=== PATIENT | female | born 1965 | race Caucasian/White ===

== ENCOUNTER 2020-04-15 13:35 | Outpatient (CLI) | payer OTHER, SELFPAY ==
--- NOTE | 2020-04-19 10:42 | ONC FU_ITS ---
Dr. Regan Patient Follow-Up Note Patient: Rita Sorenson Unit #: [id number]: 1965 Dicatated By: Farshad Regan M.D.Date of Visit:Apr 15, 2020 Onc Med Follow-up/Prog Note Chief Complaint: Rectal cancer. 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 She had an obstructing tumor at initial presentation. She was given neoadjuvant chemoradiation utilizing infusional 5-FU chemotherapy. She underwent low anterior resection with diverting colostomy in March of 2010. She had a complete pathologic response to the chemoradiation. I did attempt additional postoperative adjuvant chemotherapy, initially with modified FOLFOX and subsequently with Xeloda. She had significant toxicities with both chemotherapy regimens, and she received only 1 biweekly cycle of FOLFOX and 1 abbreviated cycle of Xeloda. She had no further chemotherapy. Her treatment was completed in June of 2010. She subsequently was able to undergo a reanastomosis of her bowel. She has since then followed on observation/expectant management. Her most recent surveillance colonoscopy was in November 2016. Surveillance CT scans of chest, abdomen, and pelvis on 03/29/2018 showed no evidence of metastatic disease. She has been in good health. She has had no other medical illnesses. Her other surgeries have been limited to section in 1986 and in 1991 and tubal ligation in 1992. She is a nonsmoker, and she does not drink alcohol. She is seen for a scheduled visit. She has been feeling good generally. She has good energy and activity tolerance. ECOG score 0. Her appetite is good. She has gained a little weight. She does not have fever. She does have some hot flashes and sweating. She has occasional allergy related sinus symptoms. She has no shortness of breath, cough, or chest pain. She has no GI complaints. Bladder function has been okay. She has had some ongoing problems with vaginal dryness since the chemoradiation. She has just occasional aching in her joints. She has no focal neurologic symptoms. Medications: Cholecalciferol 1 drop(s) (of 3000 Units) Liquid Oral daily, [facility] Fish Oil 1 Capsule (of 1000 mg) Oral daily, Omeprazole Capsule Delayed Release Oral PRN, Vitamin E Capsule Oral Allergies: Steri Strips Review of Systems: Constitutional - She has good energy, and she has normal activity. Appetite is good. She has gained some weight. She has hot flashes and sweating. No fever. ECOG score is 0, ENMT - She has occasional allergy related sinus symptoms. No mouth sores. No sore throat or difficulty swallowing, Hematologic/Lymphatic - She bruises easily, Respiratory - No shortness of breath. No cough. No pleuritic pain or hemoptysis, Cardiovascular - No angina pain. No palpitations, Gastrointestinal - No nausea or vomiting. No heartburn or acid reflux. No diarrhea or constipation. No blood in the stool or black stools, Genitourinary (F) - No dysuria or hematuria. No urinary frequency. No urgency or incontinence. She has had no menstruation since she started the chemoradiation. She is having some ongoing problems with vaginal dryness, Musculoskeletal - No joint or bone pain, Integumentary - No skin complications, Neurologic - No headache or dizziness. No numbness/paresthesias or other focal neurologic symptoms, Psychiatric - No anxiety or depression. No insomnia. Vital Signs: Performed on Apr 15, 2020 13:49 Height - 65.00 in Weight - 154.4 lbs (HIGH) BSA - 1.77 sq.m BMI - 25.69 Temperature - 98.6 F Pulse - 54 /min (LOW) Respiration - 18 /min BP - 129/65 mm(hg) O2 Sat - 99 % Pain - 0 Physical Examination: Constitutional - She looks good generally, Eyes - Sclerae nonicteric. Conjunctivae clear, ENMT - No lesions noted in the oral cavity, Hematologic/Lymphatic - No cervical, clavicular, or axillary adenopathy, Respiratory - Lungs are clear with good air movement bilaterally, Cardiovascular - Heart rhythm is regular. There is no murmur, gallop, or rub noted, Abdomen - Soft. Liver and spleen are not enlarged. There is no abdominal mass or ascites noted and there is no inguinal adenopathy, Extremities - No edema. Posterior tibial pulses are palpable bilaterally, Neurologic - No focal neurologic deficits noted. Lab/Imaging: Test performed on April 08, 2020 13:48 Glucose 92 mg/dL BUN 14 mg/dL Creatinine 0.79 mg/dL Cr Clearance (Est) 86.28 mL/min Sodium 143 mmol/L Potassium 4.1 mmol/L Chloride 105 mmol/L CO2 29 mmol/L Calcium 9.7 mg/dL Protein, Total 6.9 g/dL Albumin 4.8 g/dL Globulin 2.1 g/dL Bilirubin, Total 1.9 mg/dL Alkaline Phosphatase 56 IU/L AST (SGOT) 20 IU/L ALT (SGPT) 18 IU/L WBC 4.5 10^9/L RBC 4.21 10^12/L HGB 13.2 g/dL HCT 38.2 % MCV 90.7 fl MCH 31.4 pg MCHC 34.6 g/dL RDW 12.0 % Platelet Count 257 10^9/L MPV 9.1 fL Neutrophils (Gran) 3011 10^9/L Lymphocytes 1098 10^9/L Monocytes 221 10^9/L Eosinophils 131 10^9/L Basophils 41 10^9/L Manual Lymphocytes 24.4 % Manual Monocytes 4.9 % Manual Eosinophils 2.9 % Manual Basophils 0.9 % CEA 0.9 ng/mL Impression: 1. Patient with poorly differentiated adenocarcinoma of the rectum, clinical stage IIA (T3, N0, M0). 2. She had complete pathologic response to neoadjuvant chemoradiation, confirmed at low anterior resection in March 2010. 3. She received an abbreviated course of postoperative adjuvant chemotherapy, completed in June 2010. 4. She has had no other ongoing medical illnesses. She does have a mildly elevated total bilirubin level with normal liver enzymes, clinically consistent with Gilbert syndrome. She has remained on observation/expectant management following her adjuvant chemotherapy. Her most recent surveillance colonoscopy was in November 2016. Her surveillance CT scans the chest, abdomen, and pelvis in March 2018 showed no evidence of recurrent or metastatic disease. Overall, during follow-up she has been doing well clinically with no evidence of recurrence of the rectal cancer. Plan: She remains on observation/expectant management. I will arrange for referral to Dr. Dwyer for surveillance colonoscopy. I will see her again in one year. Signed By: Farshad Regan M.D. <<Signature on File>>
== END 2020-04-15 13:36 | disposition home or self-care (01) ==
LOC: ONCMED 13:39
PROVIDERS: PCP Family Medicine; Visit Provider Internal Medicine Medical Oncology
DX: Z08 Encounter for follow-up examination after completed treatment for malignant neoplasm (principal); Z85.048 Personal history of other malignant neoplasm of rectum, rectosigmoid junction, and anus; E80.4 Gilbert syndrome; Z92.21 Personal history of antineoplastic chemotherapy; Z92.3 Personal history of irradiation
CPT/HCPCS: G0463

== ENCOUNTER → 2020-05-04 14:40 | Outpatient (BNVA) | payer OTHER, SELFPAY | PROVIDERS: PCP Family Medicine; Visit Provider Family Medicine | DX: Z00.00 Encounter for general adult medical examination without abnormal findings (principal); E55.9 Vitamin D deficiency, unspecified | CPT/HCPCS: 80053; 80061; 82306; 84443; 85025 ==

== ENCOUNTER 2020-06-29 15:22 | Outpatient (CLI) | payer OTHER, SELFPAY ==
--- NOTE | 2020-06-29 15:30 | MM_ITS ---
WS: [id number] SCREENING DIGITAL MAMMOGRAM WITH CAD HISTORY: screening COMPARISON: 05/02/2019 and 10/04/2017 Bilateral CC and MLO views submitted. Computer aided detection analyzed. Breast composition: There are scattered areas of fibroglandular density. No suspicious masses, microc alcifications or architectural distortion. MM/[id number] IMPRESSION: BI-RADS: 1-Negative FOLLOW UP: 1 Year Follow-up
--- NOTE | 2020-06-29 16:09 | XR_ITS ---
WS: [id number] SCREENING DEXA SCAN Amplitude CLINICAL INFORMATION: menapause COMPARISON: None. FINDINGS: The L1-L4 bone mineral density measures 1.085 g/cm2. This corresponds to a T score score of -0.8 and Z score of -0.2. Left femoral neck bone mineral density measures 0.975 g/cm2. This corresponds to a T score of -0.3 an d Z score of 0.3. Right femoral neck bone mineral density measures 0.946 g/cm2. This corresponds to a T score -0.5of an d Z score of 0.0. Mean femoral neck bone mineral density measures 0.961 g/cm2. This corresponds to a T score of -0.4 an d Z score of 0.2. XR/XR DEXA axial skeleton* [id number] IMPRESSION: Normal bone mineralization. Patient's FRAX calculated 10 year probability for major osteoporotic fracture i s 6.0 % and osteoporotic hip fracture is 0.4%.
== END 2020-06-29 15:23 | disposition home or self-care (01) ==
LOC: RADSHAW 15:22
PROVIDERS: PCP Family Medicine; Visit Provider Family Medicine
DX: Z12.31 Encounter for screening mammogram for malignant neoplasm of breast (principal); Z78.0 Asymptomatic menopausal state
CPT/HCPCS: 77067; 77080

== ENCOUNTER → 2020-08-06 16:52 | Outpatient (BNVA) | payer OTHER, SELFPAY | PROVIDERS: PCP Family Medicine; Visit Provider Surgery | DX: Z20.828 Contact with and (suspected) exposure to other viral communicable diseases (principal) | CPT/HCPCS: 87635 ==

== ENCOUNTER 2020-08-10 07:05 | Day surgery (SDC) | payer OTHER, SELFPAY ==
--- NOTE | 2020-08-10 07:03 | P.HP_ITS ---
Same Day Surgery H&P Indication for Procedure/HPI DATE OF PROCEDURE: August 10, 2020 CHIEF COMPLAINT/INDICATIONFOR SURGICAL PROCEDURE: surveillence for rectal cancer PREOP DIAGNOSIS: rectal cancer PLANNED PROCEDRUE: Operation Date: 08/10/20 08:00 Proposed Procedures p Colonoscopy 50728 Z12.11(Not Applicable) - Scott Dwyer MD Medications/Allergies* Home Medications Medication Instructions Recorded Confirmed Type cholecalciferol (vitamin D3) 125 125 mcg PO DAILY 05/04/20 08/06/20 History mcg (5,000 unit) capsule Allergies/Adverse Reactions Allergy/AdvReac Type Severity Reaction Status Date / Time insect venom Allergy Unconscious Verified 08/06/20 13:31 Pertinent History/Comorbid Conditions* Medical History (Updated 06/26/20 @ 08:54 by Scott Dwyer MD) Rectal cancer T3N0 Surgical History (Updated 06/23/20 @ 15:19 by Scott Dwyer MD) H/O colonoscopy 3 1/2 yrs ago H/O ileostomy H/O partial resection of colon History of delivery History of removal of Port-a-Cath Family History (Updated 06/23/20 @ 14:54 by Bree Galan LPN) Diabetes CAD (coronary artery disease) Cancer Father lymphoma Denies family history of Anesthesia complication Bleeding disorder Social History Smoking and tobacco status: never smoked Alcohol intake: never Household members: spouse Marital status: Current occupational status: employed History of recent travel: No Pertinent Exam Findings alert, oriented x 3 and operative site marked Recommendations Surgery/Procedure today Coding Level of Care Code 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
[2020-08-10 07:24] VITALS: BP 103/70; PULSE 59; RESP 18; TEMP 36.3; BMI 26.2
--- NOTE | 2020-08-10 07:54 | ANES.PREANE2 ---
Pre-Anesthetic Assessment Pre-Anesthetic Assessment: Height/Weight: Height 1.65 m Weight 71.668 kg Temp Pulse Resp BP 97.3 F L 59 L 18 103/70 08/10/20 07:24 08/10/20 07:24 08/10/20 07:24 08/10/20 07:24 Preop Diagnosis: rectal cancer Proposed Procedure: Operation Date: 08/10/20 08:00 Proposed Procedures p Colonoscopy 05024 Z12.11(Not Applicable) - Scott Dwyer MD Was Beta Honorio taken within 24 hours: N/A Last intake: Intake Last Liquid Date 08/09/20 Last Liquid Time 20:00 Last Solid Date 08/08/20 Last Solid Time 20:00 Social: Social History: No alcohol and No tobacco Airway: Submandibular: WNL Cervical ROM: WNL MP: 1 Dentition: Full Pulmonary: Pulmonary: None reported CV/HEM: CV/HEM: None reported : : None reported Hepatic: Hepatic: None reported GI: GI: None reported Metabolic: Metabolic: None reported Musc/skel: Musc/skel: None reported Neuropsych: Neuropsych: None reported Anesthetic Plan: ASA status: 2 Anesthesia: MAC Risk of > 500 ml blood loss (7ml/kg in children): No PFSH Anesthesia PFSH: Medical History (Updated 08/07/20 @ 12:16 by ALF Gillespie) Rectal cancer T3N0 Surgical History H/O colonoscopy 3 1/2 yrs ago H/O ileostomy H/O partial resection of colon History of delivery History of removal of Port-a-Cath Family History Father Cancer lymphoma Other CAD (coronary artery disease) Diabetes Denies family history of Anesthesia complication Bleeding disorder Social History Smoking and tobacco status: never smoked Alcohol intake: never Household members: spouse Marital status: Current occupational status: employed History of recent travel: No Data Anesthesia Cardiac Studies: No Data to Display
[2020-08-10] MEDS: sodium chloride 0.9% 1,000 ML 30 ML IV (08:03)
[2020-08-10 08:22] VITALS: BP 100/56; PULSE 70; RESP 16; TEMP 36.1; O2SAT 98
--- NOTE | 2020-08-10 08:35 | ANE.PACU2 ---
Inpatient post-anesthesia follow up: Airway intact: Yes Vital signs: Temperature 97 F Pulse Rate 70 Respiratory Rate 16 Blood Pressure 100/56 Pulse Oximetry 98 Oxygen Delivery Me thod Room Air Oxygen Flow Rate Fraction of Inspir ed Oxygen Hydration adequate: Yes Nausea and vomiting: No Pain level: 1 Mental status: Baseline
== END 2020-08-10 08:47 | disposition home or self-care (01) ==
PROVIDERS: PCP Family Medicine; Visit Provider Surgery
PROC: 0DJD8ZZ Inspection of Lower Intestinal Tract, Via Natural or Artificial Opening Endoscopic (ICD-10-PCS; CPT 45378; principal; 2020-08-10 08:00)
DX: Z12.11 Encounter for screening for malignant neoplasm of colon (principal); Z85.048 Personal history of other malignant neoplasm of rectum, rectosigmoid junction, and anus; D12.4 Benign neoplasm of descending colon
CPT/HCPCS: 12345; 45380; 88305; J7030

== ENCOUNTER → 2020-08-18 13:27 | Outpatient (BNVA) | payer OTHER, SELFPAY | PROVIDERS: PCP Family Medicine; Visit Provider Nurse Practitioner Family | DX: N39.0 Urinary tract infection, site not specified (principal) | CPT/HCPCS: 81001 ==

== ENCOUNTER 2021-05-13 14:35 | Outpatient (CLI) | payer OTHER, SELFPAY ==
--- NOTE | 2021-05-13 16:12 | ONC FU_ITS ---
Dr. Regan Patient Follow-Up Note Patient: Rita Sorenson Unit #: [id number]: 1965 Dicatated By: Farshad Regan M.D.Date of Visit:May 13, 2021 Onc Med Follow-up/Prog Note Chief Complaint: Rectal cancer. 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 She had an obstructing tumor at initial presentation. She was given neoadjuvant chemoradiation utilizing infusional 5-FU chemotherapy. She underwent low anterior resection with diverting colostomy in March of 2010. She had a complete pathologic response to the chemoradiation. I did attempt additional postoperative adjuvant chemotherapy, initially with modified FOLFOX and subsequently with Xeloda. She had significant toxicities with both chemotherapy regimens, and she received only 1 biweekly cycle of FOLFOX and 1 abbreviated cycle of Xeloda. She had no further chemotherapy. Her treatment was completed in June of 2010. She subsequently was able to undergo a reanastomosis of her bowel. She was then followed on observation/expectant management. Her surveillance colonoscopy in November 2016 showed no abnormalities. Surveillance CT scans of chest, abdomen, and pelvis on 03/29/2018 showed no evidence of metastatic disease. As she was more than 5 years out from completion of treatment, further routine surveillance imaging was not recommended. She has been in good health. She has had no other medical illnesses. Her other surgeries have been limited to section in 1986 and in 1991 and tubal ligation in 1992. She is a nonsmoker, and she does not drink alcohol. Surveillance colonoscopy on 08/10/2020 showed two 5 mm polyps in the descending colon, both removed endoscopically. Pathology showed fragments of tubular adenomas. She is seen for a scheduled visit. She has been feeling good generally. About 3 weeks ago she developed pain in the right lower quadrant abdominal area. A specific cause was not determined, but it resolved within 3 or 4 days. She otherwise has had just occasional episodes of diarrhea, which seem to be diet related. She has good energy and activity tolerance. ECOG score is 0. Her appetite has been good. Her weight is up a couple of pounds. She does not have fever. She has occasional hot flashes, which are not bad. She has some sinus drainage. She does not complain of shortness of breath, cough, or chest pain. She has no other GI or complaints. She says her upper back occasionally gets out of place. Recently she developed some pain in the right SI joint area, but that also is getting better. She does not complain of headache or dizziness. She still has a little numbness in her hands with cold exposure. She has no other neuropathy symptoms. Medications: Cholecalciferol 1 drop(s) (of 3000 Units) Liquid Oral daily, [facility] Fish Oil 1 Capsule (of 1000 mg) Oral daily Allergies: Steri Strips Vital Signs: Performed on May 13, 2021 15:05 Height - 65.00 in Weight - 157.2 lbs (HIGH) BSA - 1.79 sq.m BMI - 26.16 Temperature - 98.0 F (LOW) Pulse - 61 /min Respiration - 18 /min BP - 113/72 mm(hg) O2 Sat - 97 % Pain - 0 Fatigue - 0 Physical Examination: Constitutional - She looks good generally, Eyes - Sclerae nonicteric. Conjunctivae clear, ENMT - No lesions noted in the oral cavity, Hematologic/Lymphatic - No cervical, clavicular, or axillary adenopathy, Respiratory - Lungs are clear with good air movement bilaterally, Cardiovascular - Heart rhythm is regular. There is no murmur, gallop, or rub noted, Abdomen - Soft. Liver and spleen are not enlarged. There is no abdominal mass or ascites noted and there is no inguinal adenopathy, Extremities - No edema, Neurologic - No focal neurologic deficits noted. Lab/Imaging: Test performed on April 08, 2021 11:27 Glucose 93 mg/dL BUN 14 mg/dL Creatinine 0.76 mg/dL Cr Clearance (Est) 92.47 mL/min Sodium 141 mmol/L Potassium 4.3 mmol/L Chloride 104 mmol/L CO2 31 mmol/L Calcium 9.5 mg/dL Protein, Total 6.8 g/dL Albumin 4.6 g/dL Globulin 2.2 g/dL Bilirubin, Total 1.8 mg/dL Alkaline Phosphatase 57 IU/L AST (SGOT) 21 IU/L ALT (SGPT) 18 IU/L WBC 4.5 10^9/L RBC 4.37 10^12/L HGB 13.7 g/dL HCT 39.8 % MCV 91.1 fl MCH 31.4 pg MCHC 34.4 g/dL RDW 12.1 % Platelet Count 277 10^9/L MPV 9.2 fL Neutrophils (Gran) 2876 10^9/L Lymphocytes 1143 10^9/L Monocytes 302 10^9/L Eosinophils 122 10^9/L Basophils 59 10^9/L Manual Lymphocytes 25.4 % Manual Monocytes 6.7 % Manual Eosinophils 2.7 % Manual Basophils 1.3 % CEA 1.0 ng/mL Problem List: 1. Patient with poorly differentiated adenocarcinoma of the rectum, clinical stage IIA (T3, N0, M0). 2. She had complete pathologic response to neoadjuvant chemoradiation, confirmed at low anterior resection in March 2010. 3. She received an abbreviated course of postoperative adjuvant chemotherapy, completed in June 2010. 4. She has had no other ongoing medical illnesses. She does have a mildly elevated total bilirubin level with normal liver enzymes, clinically consistent with Gilbert syndrome. Problems Addressed with this Encounter and Plan: Patient with poorly differentiated adenocarcinoma of the rectum, clinical stage IIA (T3, N0, M0). She had complete pathologic response to neoadjuvant chemoradiation, confirmed at low anterior resection in March 2010. She received an abbreviated course of postoperative adjuvant chemotherapy, completed in June 2010. She has continued expectant management following completion of her treatment. Overall she has been doing very well clinically. There has been no evidence of recurrence of the rectal cancer. She did have 2 adenomatous polyps removed on her surveillance colonoscopy in July 2020. With that finding, I recommended that she have a repeat colonoscopy within 3 years. She will be scheduled for a follow-up visit in 1 year. Signed By: Farshad Regan M.D. <<Signature on File>>
== END 2021-05-13 14:36 | disposition home or self-care (01) ==
PROVIDERS: PCP Family Medicine; Visit Provider Internal Medicine Medical Oncology
DX: Z08 Encounter for follow-up examination after completed treatment for malignant neoplasm (principal); Z85.048 Personal history of other malignant neoplasm of rectum, rectosigmoid junction, and anus; E80.4 Gilbert syndrome; Z79.899 Other long term (current) drug therapy; Z92.21 Personal history of antineoplastic chemotherapy
CPT/HCPCS: G0463

== ENCOUNTER → 2021-08-18 14:31 | Outpatient (BNVA) | payer OTHER, SELFPAY | PROVIDERS: PCP Family Medicine; Visit Provider Nurse Practitioner Family | DX: N39.0 Urinary tract infection, site not specified (principal) | CPT/HCPCS: 81003 ==

== ENCOUNTER → 2022-01-19 10:05 | Outpatient (BNVA) | payer OTHER, SELFPAY | PROVIDERS: PCP Family Medicine; Visit Provider Family Medicine | DX: C20 Malignant neoplasm of rectum (principal); E55.9 Vitamin D deficiency, unspecified; Z00.00 Encounter for general adult medical examination without abnormal findings; Z78.0 Asymptomatic menopausal state | CPT/HCPCS: 80053; 80061; 82306; 82378; 84443; 85025 ==

== ENCOUNTER → 2022-01-20 11:57 | Outpatient (BNVA) | payer OTHER, SELFPAY | PROVIDERS: PCP Family Medicine; Visit Provider Nurse Practitioner Family | DX: N39.0 Urinary tract infection, site not specified (principal); Z12.4 Encounter for screening for malignant neoplasm of cervix; Z85.048 Personal history of other malignant neoplasm of rectum, rectosigmoid junction, and anus; R10.31 Right lower quadrant pain; R19.8 Other specified symptoms and signs involving the digestive system and abdomen; Z86.010 Personal history of colon polyps; Z78.0 Asymptomatic menopausal state; E55.9 Vitamin D deficiency, unspecified; Z12.39 Encounter for other screening for malignant neoplasm of breast; Z00.00 Encounter for general adult medical examination without abnormal findings | CPT/HCPCS: 81003; 87624 ==

== ENCOUNTER 2022-06-13 11:55 | Outpatient (CLI) | payer OTHER, SELFPAY ==
--- NOTE | 2022-06-13 12:02 | MM_ITS ---
WS: [id number] SCREENING DIGITAL BREAST TOMOSYNTHESIS MAMMOGRAM WITH CAD HISTORY: SCREENING COMPARISON: 06/29/2020 Bilateral CC and MLO with tomosynthesis and synthetic mammography submitted. Computer aided detection analyzed. Breast composition: There are scattered areas of fibroglandular density. No suspicious mass or calcif ication. MM/[place] [id number] IMPRESSION: BI-RADS: 1-Negative FOLLOW UP: 1 Year Follow-up
== END 2022-06-13 11:56 | disposition home or self-care (01) ==
LOC: RAD 11:56
PROVIDERS: PCP Family Medicine; Visit Provider Nurse Practitioner Family
DX: Z12.31 Encounter for screening mammogram for malignant neoplasm of breast (principal)
CPT/HCPCS: 77063; 77067

== ENCOUNTER → 2023-03-29 09:20 | Outpatient (BNVA) | payer OTHER, SELFPAY | PROVIDERS: PCP Family Medicine; Visit Provider Nurse Practitioner Family | DX: M25.572 Pain in left ankle and joints of left foot (principal) | CPT/HCPCS: 73610 ==

== ENCOUNTER 2023-08-30 13:00 | Oncology outpatient (recurring) (ONCR) | payer OTHER, SELFPAY ==
[2023-08-30 13:51] LABS: Basophils % 0.8 %; Eosinophils # 0.1 10^3/uL (0.0-0.8); Eosinophils % 1.9 %; Hematocrit 38.6 % (36-47); Lymphocytes # 1.2 10^3/uL (0.8-4.8); Lymphocytes % 23.4 %; Mean Corpuscular HGB Conc 33.9 g/dL (30-55); Mean Corpuscular Hemoglobin 30.4 pg (27-33); Mean Corpuscular Volume 89.6 fl (85-98); Mean Platelet Volume 8.5 fL (7.4-10.4); Monocytes # 0.3 10^3/uL (0.2-0.9); Monocytes % 6.5 %; Neutrophils # 3.52 10^3/uL (1.8-7.7); Nucleated Red Blood Cells % 0 %; Platelet Count 284 10^3/cmm (157-399); Red Blood Count 4.31 10^6/uL (3.85-5.65); Red Cell Distribution Width 11.9 % (12.1-15.1); White Blood Count 5.25 10^3/uL (3.29-11.43)
[2023-08-30 14:15] LABS: Alanine Aminotransferase 18 U/L (0-33); Albumin Level 4.4 g/dL (3.5-5.2); Alkaline Phosphatase 66 U/L (35-105); Anion Gap 12.7 (5-19); Aspartate Amino Transferase 22 U/L (0-32); Blood Urea Nitrogen 13 mg/dL (6-20); Calcium 9.2 mg/dL (8.5-10.5); Carbon Dioxide 27 mmol/L (22-29); Chloride 102 mmol/L (98-107); Globulin 2.3 g/dL (1.3-4.6); Glucose 98 mg/dL (65-115); Osmolality Calculated 286 mOsm/kg (285-295); Potassium 3.7 mmol/L (3.5-5.1); Sodium 138 mmol/L (136-145); Total Bilirubin 1.5 mg/dL (0.15-1.2); Total Protein 6.7 g/dL (6.6-8.7)
[2023-08-30 14:31] LABS: 25 Hydroxy Vitamin D 21 ng/mL (30-100)
[2023-08-30 14:52] LABS: Carcinoembryonic Antigen 1.8 ng/mL (0.0-4.7)
== END 2023-09-12 23:59 | disposition home or self-care (01) ==
PROVIDERS: PCP Family Medicine; Visit Provider Internal Medicine Medical Oncology
DX: E55.9 Vitamin D deficiency, unspecified (principal); C20 Malignant neoplasm of rectum
CPT/HCPCS: 36415; 80053; 82306; 82378; 85025

== ENCOUNTER 2023-09-07 09:35 | Outpatient (CLI) | payer OTHER, SELFPAY ==
--- NOTE | 2023-09-07 09:42 | MM_ITS ---
WS: [id number] BILATERAL SCREENING DIGITAL TOMOSYNTHESIS MAMMOGRAM WITH CAD HISTORY: SCREENING COMPARISON: 06/13/2022 and 06/29/2020, Bilateral CC and MLO views with tomosynthesis and synthetic mammo graphy submitted. Computer aided detection analyzed. Breast composition: There are scattered areas of fibroglandular density. No suspicious masses, microc alcifications or architectural distortion. IMPRESSION: MM/[place] [id number] BI-RADS: 1-Negative FOLLOW UP: 1 Year Follow-up
== END 2023-09-07 09:36 | disposition home or self-care (01) ==
LOC: RAD 09:35
PROVIDERS: PCP Family Medicine; Visit Provider Nurse Practitioner Family
DX: Z12.31 Encounter for screening mammogram for malignant neoplasm of breast (principal)
CPT/HCPCS: 77063; 77067

== ENCOUNTER → 2024-03-12 13:15 | Outpatient (BNVA) | payer OTHER, SELFPAY | PROVIDERS: PCP Family Medicine; Visit Provider Nurse Practitioner Family | DX: E55.9 Vitamin D deficiency, unspecified (principal); Z01.419 Encounter for gynecological examination (general) (routine) without abnormal findings; Z12.4 Encounter for screening for malignant neoplasm of cervix; Z78.0 Asymptomatic menopausal state; Z85.048 Personal history of other malignant neoplasm of rectum, rectosigmoid junction, and anus; M25.50 Pain in unspecified joint; R63.8 Other symptoms and signs concerning food and fluid intake; M25.551 Pain in right hip; M25.552 Pain in left hip; R10.9 Unspecified abdominal pain; R53.83 Other fatigue; R30.0 Dysuria; Z78.9 Other specified health status; Z12.31 Encounter for screening mammogram for malignant neoplasm of breast; R10.30 Lower abdominal pain, unspecified | CPT/HCPCS: 80053; 80061; 82306; 82378; 82672; 83036; 83550; 84144; 84403; 84443; 85025; 85651; 86038; 86140; 86200; 86431; 87624 ==

== ENCOUNTER 2024-03-18 06:07 | Oncology outpatient (recurring) (ONCR) | payer OTHER, SELFPAY ==
--- NOTE | 2024-03-18 06:15 | US_ITS ---
WS: [id number] Complete ABDOMINAL ULTRASOUND HISTORY: ABD pain COMPARISON: None available. Liver: 12.2 cm in length. Normal size liver and echogenicity. No bile duct dilatation or mass. Portal Vein: Normal hepatopetal flow with monophasic waveform. Gallbladder: Normally distended gallbladder with no stones or wall thickening. CBD: 0.4 cm Pancreas: Normal size and echogenicity. Right kidney: 10.8 cm x 4.5 x 4.0 cm. Cortex:1.4 cm. Normal size and echogenicity. No hydronephrosis or mass. Left kidney: 10.7 cm x 4.6 cm x 4.1 cm. Cortex: 1.7 cm. Normal size and echogenicity. Simple cyst upper pole measures 1.5 x 1.2 x 1.3 cm. Spleen: 10.9 cm. Normal size and echogenicity. Aorta and IVC: Unremarkable abdominal aorta and IVC. US/US abdomen complete* [id number] Impression: 1. Simple cyst upper pole LEFT kidney. 2. Remaining abdomen ultrasound is negative. Normal liver.
== END 2024-04-12 23:59 | disposition home or self-care (01) ==
LOC: RAD 06:07 → ONCMED 03-28 16:47
PROVIDERS: PCP Family Medicine; Visit Provider Nurse Practitioner Family
DX: E55.9 Vitamin D deficiency, unspecified (principal); C20 Malignant neoplasm of rectum; R10.9 Unspecified abdominal pain
CPT/HCPCS: 76700

== ENCOUNTER 2024-03-26 13:03 | Outpatient (CLI) | payer OTHER, SELFPAY ==
--- NOTE | 2024-03-26 13:00 | XR_ITS ---
WS: [id number] SCREENING DEXA SCAN Goombal CLINICAL INFORMATION: screening COMPARISON: 2019 FINDINGS: The L1-L4 bone mineral density measures 1.024 g/cm2. This corresponds to a T score score of -1.3 and Z score of -0.6. Left femoral neck bone mineral density measures 0.903 g/cm2. This corresponds to a T score of -0.8 an d Z score of -0.3. Right femoral neck bone mineral density measures 0.890 g/cm2. This corresponds to a T score -0.9of an d Z score of -0.4. Mean femoral neck bone mineral density measures 0.897 g/cm2. This corresponds to a T score of -0.9 an d Z score of -0.3. XR/XR DEXA axial skeleton* [id number] IMPRESSION: Osteopenia lumbar spine. Normal bone mineralization femoral necks. Patient's FRAX calculated 10 year probability for major osteoporotic fracture i s 7.3% and osteoporotic hip fracture is 0.6%. Bone mineral density lumbar spine decreased -5.6% Bone mineral density femoral necks decreased -6.7%
== END 2024-03-26 13:04 | disposition home or self-care (01) ==
LOC: RAD 13:03
PROVIDERS: PCP Family Medicine; Visit Provider Nurse Practitioner Family
DX: Z78.0 Asymptomatic menopausal state (principal); M85.88 Other specified disorders of bone density and structure, other site
CPT/HCPCS: 77080

== ENCOUNTER 2024-08-28 11:29 | Oncology outpatient (recurring) (ONCR) | payer OTHER, SELFPAY ==
[2024-08-28 11:55] LABS: Basophils % 0.7 %; Eosinophils # 0.1 10^3/uL (0.0-0.8); Eosinophils % 1.1 %; Hematocrit 38.9 % (36-47); Lymphocytes # 1.3 10^3/uL (0.8-4.8); Lymphocytes % 24.4 %; Mean Corpuscular HGB Conc 33.7 g/dL (30-55); Mean Corpuscular Hemoglobin 30.2 pg (27-33); Mean Corpuscular Volume 89.6 fl (85-98); Mean Platelet Volume 8.5 fL (7.4-10.4); Monocytes # 0.4 10^3/uL (0.2-0.9); Monocytes % 7.7 %; Neutrophils # 3.58 10^3/uL (1.8-7.7); Neutrophils % 65.9 %; Nucleated Red Blood Cells % 0 %; Platelet Count 290 10^3/cmm (157-399); Red Blood Count 4.34 10^6/uL (3.85-5.65); White Blood Count 5.44 10^3/uL (3.29-11.43)
[2024-08-28 12:42] LABS: 25 Hydroxy Vitamin D 22 ng/mL (30-100); Alanine Aminotransferase 20 U/L (0-33); Albumin Level 4.7 g/dL (3.5-5.2); Alkaline Phosphatase 76 U/L (35-105); Anion Gap 13.6 (5-19); Aspartate Amino Transferase 17 U/L (0-32); Blood Urea Nitrogen 13 mg/dL (6-20); Calcium 8.9 mg/dL (8.5-10.5); Carbon Dioxide 29 mmol/L (22-29); Chloride 106 mmol/L (98-107); Creatinine Clr Calc Pharmacy 88.4465; Globulin 2.4 g/dL (1.3-4.6); Glomerular Filtration Rate 85.9 mL/min (90-130); Glucose 99 mg/dL (65-115); Osmolality Calculated 298 mOsm/kg (285-295); Potassium 4.6 mmol/L (3.5-5.1); Sodium 144 mmol/L (136-145); Total Bilirubin 1.1 mg/dL (0.15-1.2); Total Protein 7.1 g/dL (6.6-8.7)
[2024-08-28 13:10] LABS: Carcinoembryonic Antigen 2.1 ng/mL (0.0-4.7)
== END 2024-09-12 23:59 | disposition home or self-care (01) ==
PROVIDERS: Internal Medicine Medical Oncology; PCP Family Medicine; Visit Provider Nurse Practitioner Family
DX: E55.9 Vitamin D deficiency, unspecified (principal); C20 Malignant neoplasm of rectum; Z53.9 Procedure and treatment not carried out, unspecified reason
CPT/HCPCS: 36415; 80053; 82306; 82378; 85025

== ENCOUNTER 2025-08-21 14:00 | Oncology outpatient (recurring) (ONCR) | payer OTHER, SELFPAY ==
[2025-08-20 13:32] LABS: Hematocrit 37.2 % (36-47); Hemoglobin 12.60 g/dL (11.27-16.99); Mean Corpuscular HGB Conc 33.9 g/dL (30-55); Mean Corpuscular Hemoglobin 30.0 pg (27-33); Mean Corpuscular Volume 88.6 fl (85-98); Nucleated Red Blood Cells % 0 %; Platelet Count 276 10^3/cmm (157-399); Red Blood Count 4.20 10^6/uL (3.85-5.65); White Blood Count 5.27 10^3/uL (3.29-11.43)
[2025-08-20 13:47] LABS: Alanine Aminotransferase 18 U/L (0-33); Albumin Level 4.4 g/dL (3.5-5.2); Alkaline Phosphatase 73 U/L (35-105); Anion Gap 13.8 (5-19); Aspartate Amino Transferase 21 U/L (0-32); Blood Urea Nitrogen 10 mg/dL (6-20); Calcium 9.1 mg/dL (8.5-10.5); Carbon Dioxide 27 mmol/L (22-29); Chloride 106 mmol/L (98-107); Globulin 2.4 g/dL (1.3-4.6); Glucose 92 mg/dL (65-115); Osmolality Calculated 295 mOsm/kg (285-295); Potassium 3.8 mmol/L (3.5-5.1); Sodium 143 mmol/L (136-145); Total Protein 6.8 g/dL (6.6-8.7)
[2025-08-20 15:48] LABS: Carcinoembryonic Antigen 1.7 ng/mL (0.0-4.7)
== END 2025-09-12 23:59 | disposition home or self-care (01) ==
PROVIDERS: PCP Family Medicine; Visit Provider Internal Medicine
DX: Z53.9 Procedure and treatment not carried out, unspecified reason (principal)
CPT/HCPCS: 36415; 80053; 82306; 82378; 85025